=== PATIENT | male | born 1965 | race Caucasian/White ===

== ENCOUNTER 2019-02-19 20:50 | Emergency (ER) | payer BC ==
[~2019-02-19] VITALS: Ht 175.3 cm; Wt 97.7 kg
[~2019-02-19 20:50] MED LIST: CHLO25CA10 PO; FLO0.4C PO; LEVO750T21 PO; LORA1TAB PO; MECL-111 PO; METO50TA16; PANT-47 PO; SERT25TA PO; TADA5TAB2 PO
[2019-02-19] MEDS ORDERED: normal saline 1000ML IV soln IVB ONE ×2 (21:15)
[2019-02-19] MEDS ORDERED: metoclopramide 5 mg/ml inj IV ONE (21:15)
[2019-02-19] MEDS ORDERED: diphenhydrAMINE 50 mg/ml inj IV ONE (21:15)
[2019-02-19] MEDS ORDERED: LIDOcaine Viscous 15ml cup MM ONE (21:20)
[2019-02-19] MEDS ORDERED: mag hydrox/Alum hydrox/simeth 30ml oral suspension PO ONE (21:20)
[2019-02-19 21:37] LABS: BASOPHILS # (AUTO) 0.1 X10'3 (0-0.2); BASOPHILS % (AUTO) 0.7 % (0-1); EOSINOPHILS % (AUTO) 0.1 % (0-6); HEMATOCRIT 46.7 % (42.0-52.0); HEMOGLOBIN 16.4 g/dl (14.0-17.9); LYMPHOCYTES # (AUTO) 1.6 X10'3 (1.1-4.8); LYMPHOCYTES % (AUTO) 12.1 % (21-51); MEAN CORPUSCULAR HEMOGLOBIN 29.3 PG (27.0-31.0); MEAN CORPUSCULAR HGB CONC 35.2 g/dL (33.0-36.5); MEAN CORPUSCULAR VOLUME 83.1 FL (78-98); MEAN PLATELET VOLUME 7.7 FL (7.4-10.4); MONOCYTES # (AUTO) 1.5 X10'3 (0-0.9); MONOCYTES % (AUTO) 11.3 % (2-12); NEUTROPHILS # (AUTO) 10.1 X10'3 (1.8-7.7); NEUTROPHILS % (AUTO) 75.8 % (42-75); PLATELET COUNT 328 X10'3 (140-440); RED BLOOD COUNT 5.61 X10'6 (4.70-6.10); RED CELL DISTRIBUTION WIDTH 14.1 % (11.5-14.5); WHITE BLOOD COUNT 13.3 X10'3 (4.5-11.0)
[2019-02-19 21:42] LABS: ALANINE AMINOTRANSFERASE 32 U/L (12-78); ALBUMIN 3.7 G/DL (3.4-5.0); ALKALINE PHOSPHATASE 96 IU/L (46-116); ANION GAP 13 (8-16); ASPARTATE AMINO TRANSFERASE 23 U/L (10-37); BILIRUBIN,TOTAL 0.3 MG/DL (0.1-1.0); BLOOD UREA NITROGEN 6 MG/DL (7-18); BUN/CREATININE RATIO 6.1 (5.4-32.0); CALCIUM 9.4 MG/DL (8.5-10.1); CHLORIDE 99 MMOL/L (99-107); CREATININE 0.99 MG/DL (0.60-1.10); GLUCOSE 179 MG/DL (70-104); MAGNESIUM 1.3 MG/DL (1.5-2.4); SODIUM 138 MMOL/L (135-145); TOTAL CARBON DIOXIDE 26.4 MMOL/L (24-32); TOTAL PROTEIN 7.4 G/DL (6.4-8.2); eGFR 79 ML/MIN
[2019-02-19 21:46] LABS: POTASSIUM 2.9 MMOL/L (3.5-5.1)
[2019-02-19] MEDS ORDERED: potassium Cl 20 mEq SR tablet PO STA (21:47)
[2019-02-19] MEDS ORDERED: magnesium 2GM in 50ml NS 50 ML IV ONE (21:50)
[2019-02-19 22:12] LABS: ETHANOL 0.317 GM/DL (0.0-0.010)
[2019-02-19 23:16] VITALS: BP 133/94
[2019-02-19] MEDS ORDERED: OMEP40CA13 PO (23:23)
[2019-02-19] MEDS ORDERED: ONDA4TAB12 PO (23:23)
== END 2019-02-20 02:18 | disposition home or self-care (01) ==
LOC: ER 20:51
DX: F10.129 Alcohol abuse with intoxication, unspecified (principal); E86.0 Dehydration; R07.89 Other chest pain; R10.13 Epigastric pain; I10 Essential (primary) hypertension; G89.29 Other chronic pain; K21.9 Gastro-esophageal reflux disease without esophagitis; Z98.890 Other specified postprocedural states; Z86.711 Personal history of pulmonary embolism; Z88.8 Allergy status to other drugs, medicaments and biological substances; Z79.2 Long term (current) use of antibiotics; Z79.899 Other long term (current) drug therapy; Y90.9 Presence of alcohol in blood, level not specified
CPT/HCPCS: 36415; 71045; 80053; 80320; 83735; 83880; 84145; 84484; 85025; 93005; 96374; 96375; 99284; J1200; J2765; J3475; J7030

== ENCOUNTER 2022-12-04 21:11 | Emergency (ER) | payer SELFPAY ==
[~2022-12-04] VITALS: Ht 175.3 cm; Wt 90.9 kg
[~2022-12-04 21:11] MED LIST changes: -MECL-111 PO; +MECL-302 PO; +ONDA4TAB12 PO
[2022-12-04 21:35] LABS: BASOPHILS # (AUTO) 0.1 X10'3 (0-0.2); BASOPHILS % (AUTO) 0.9 % (0-1); EOSINOPHILS % (AUTO) 0.4 % (0-6); HEMATOCRIT 46.6 % (42.0-52.0); HEMOGLOBIN 15.3 g/dl (14.0-17.9); LYMPHOCYTES # (AUTO) 1.8 X10'3 (1.1-4.8); LYMPHOCYTES % (AUTO) 18.9 % (21-51); MEAN CORPUSCULAR HEMOGLOBIN 26.2 PG (27.0-31.0); MEAN CORPUSCULAR HGB CONC 32.9 g/dL (33.0-36.5); MEAN CORPUSCULAR VOLUME 79.7 FL (78-98); MEAN PLATELET VOLUME 7.4 FL (7.4-10.4); MONOCYTES # (AUTO) 0.6 X10'3 (0-0.9); MONOCYTES % (AUTO) 6.5 % (2-12); NEUTROPHILS # (AUTO) 6.9 X10'3 (1.8-7.7); NEUTROPHILS % (AUTO) 73.3 % (42-75); PLATELET COUNT 320 X10'3 (140-440); RED BLOOD COUNT 5.84 X10'6 (4.70-6.10); RED CELL DISTRIBUTION WIDTH 17.9 % (11.5-14.5); WHITE BLOOD COUNT 9.4 X10'3 (4.5-11.0)
[2022-12-04 21:37] VITALS: TEMP 98
[2022-12-04 21:57] LABS: ALANINE AMINOTRANSFERASE 41 U/L (12-78); ALBUMIN 3.6 G/DL (3.4-5.0); ALBUMIN/GLOBULIN RATIO 1.1 (1.1-1.5); ALKALINE PHOSPHATASE 82 IU/L (46-116); ANION GAP 16 (8-16); ASPARTATE AMINO TRANSFERASE 45 U/L (10-37); BILIRUBIN,TOTAL 0.2 MG/DL (0.1-1.0); BLOOD UREA NITROGEN 15 MG/DL (7-18); BUN/CREATININE RATIO 14.3 (10.0-20.0); CALCIUM 7.8 MG/DL (8.5-10.1); CHLORIDE 104 MMOL/L (99-107); CREATININE 1.05 MG/DL (0.60-1.10); GLUCOSE 112 MG/DL (70-104); POTASSIUM 3.9 MMOL/L (3.5-5.1); PRO BRAIN NATRIURETIC PEPTIDE < 30 PG/ML (0-125); SODIUM 143 MMOL/L (135-145); eCRCL 79 ML/MIN; eGFR 73 ML/MIN
--- NOTE | 2022-12-04 21:57 | NUR ---
ASSISTING CHARGE NURSE WITH PT CARE. PT IS ALERT AND ORIENTED, C/O CHEST PAIN STARTED AT 1900, NONRADIATING, +SOB, +N/V. PT STATED "I HAVE DRANK A TON FOR THE PAST WEEK". REPORT TO [facility]
[2022-12-04] MEDS ORDERED: famotidine/PF 10 mg/ml inj IV ONE (23:15)
[2022-12-04] MEDS ORDERED: LIDOcaine Viscous 15ml cup MM ONE (23:15)
[2022-12-04] MEDS ORDERED: mag hydrox/Alum hydrox/simeth 30ml oral suspension PO ONE (23:15)
[2022-12-04 23:34] LABS: LIPASE 319 U/L (73-393)
[2022-12-05 00:08] LABS: D-DIMER 0.38 MG/L FEU (0-0.50)
[2022-12-05 02:34] VITALS: BP 148/79; PULSE 84; RESP 16; O2SAT 100
== END 2022-12-05 02:35 | disposition home or self-care (01) ==
LOC: ER 21:11
DX: R07.9 Chest pain, unspecified (principal); K21.9 Gastro-esophageal reflux disease without esophagitis; G89.29 Other chronic pain; M54.9 Dorsalgia, unspecified; F41.9 Anxiety disorder, unspecified; I11.0 Hypertensive heart disease with heart failure; Z79.899 Other long term (current) drug therapy
CPT/HCPCS: 36415; 71045; 80053; 83690; 83880; 84484; 85025; 85379; 93005; 96374; 99285; J3490